=== PATIENT | female | born 1975 | race Caucasian/White ===

== ENCOUNTER 2022-03-13 08:55 | Outpatient (REF) | payer OTHER, SELFPAY ==
--- NOTE | ~2022-03-13 | FL_ITS ---
EXAMINATION: FL AIR-CONTRAST UPPER GI EXAMINATION CLINICAL INFORMATION: Epigastric pain. Status post previous gastric sleeve into thousand and 7 according to patient. All imaging has been performed at [facility]. COMPARISON: None at this time. Prior studies from [facility] will be obtained with addendum to be made following review of these studies. TECHNIQUE: Air-contrast upper GI examination. FINDINGS: Patient swallowed thin and thick barium and half-inch diameter barium tablet without difficulty. No nasopharyngeal reflux or tracheal aspiration was identified. No Zenker's diverticulum is seen. No cricopharyngeal hypertrophy. There is a small hiatal hernia present. There is spontaneous gastroesophageal reflux to the level of the thoracic inlet with tertiary contractions identified. No definite esophageal mucosal ulceration is appreciated. Patient status post previous gastric surgery. There is a small persistent linear region of contrast with question adjacent edematous change versus postsurgical change. This could represent a possible ulcer. This is about the lateral wall of the stomach. There is also what appears be some contrast external to the stomach below the left hemidiaphragm and it is difficult to tell whether this may be an acute or chronic finding. Prior studies will be obtained for comparison. No evidence of gastric outlet obstruction. Duodenal bulb and sweep appear unremarkable. FL/FL upper GI w Ba Swallow IMPRESSION: Small hiatal hernia with spontaneous gastroesophageal reflux and tertiary contractions. Postsurgical change of the stomach with question of ulceration versus postoperative change about the left lateral aspect. Contrast which appears be external to the stomach may be acute or chronic and studies from [facility] will be obtained for comparison.
== END 2022-03-13 08:56 | disposition home or self-care (01) ==
LOC: HO.XRAY 08:55
PROVIDERS: PCP Internal Medicine; Visit Provider Internal Medicine Gastroenterology
DX: R10.13 Epigastric pain (principal); Z98.84 Bariatric surgery status
CPT/HCPCS: 74240

== ENCOUNTER 2022-03-19 11:41 | Day surgery (SDC) | payer OTHER, SELFPAY ==
[2022-03-19 11:55] VITALS: BMI 35.4
--- NOTE | 2022-03-19 11:59 | P.HPSUR_ITS ---
Pre-Procedural Eval Section A Date of Service: 03/19/22 Section B Chief Complaint: Epigastric pain Details of Present Illness: several months hx of nausea with blood tinged emesis and epigastric pain as well as dark stools. She is taking iron supplements, [facility] 11 and iron sat 4 %. She also had abnormal imaging with possible ulcer in stomach Relevant Family History (Specify if Yes): No Relevant Social History: None Present Medications: see Short Stay Collaborative assessment Medical History: Significant History (GERD, COVID twice, iron def) History of Previous Operations: Relevant previous surgery/procedure and date(s) (sleeve gastrectomy, tubal ligation ) Allergies: Allergies Allergy/AdvReac Type Severity Reaction Status Date / Time Penicillin Allergy Unknown hives Uncoded 09/09/12 00:00 Percocet Allergy Unknown upset Uncoded 09/09/12 00:00 stomach, vomitting Tylenol with Codeine Allergy Unknown upset Uncoded 09/09/12 00:00 stomach, hives Ultram ER Allergy Unknown upset Uncoded 09/09/12 00:00 stomach, vomitting Review of Systems Sugical H&P ROS: Negative: Constitution, Cardiovascular, Respiratory, Neurological, Psychiatric, Hem-Onc, Allergic/Immunologic, Gastrointestinal, Genitourinary, Musculoskeletal, Integumentary, Endocrine and Eyes/Ears/Nose/Throat Exam Surgical H&P Exam: Normal: HEENT, Normal: Heart, Normal: Lungs, Normal: Extremities, Normal: Skin and Normal: Neurological and Significant Findings: Abdomen (tender epigastrium) Plan Diagnosis/Plan: Unchanged I have reviewed the history and physical and performed a pertinent physical examination on my patient. No changes have occurred unless specified. EGD for further assessment.
--- NOTE | 2022-03-19 12:02 | P.BOP_ITS ---
Brief Operative Note Date of Service: 03/19/22 Pre-op diagnosis: epigastric pain Post-op diagnosis: same Procedure: see op note Surgeon: Jordan Esteban MD Anesthesia: MAC Was an [employer] used for this Procedure?: No Estimated blood loss (mL): 0 Condition: stable Disposition: PACU
--- NOTE | 2022-03-19 12:02 | W.PM.OPN ---
Operative Note Operative Note Date of Service: 03/19/22 Narrative: Procedure Description: EGD Indication: epigastric pain Anesthesia: MAC FLEXIBLE TRANSORAL UPPER GASTROINTESTINAL ENDOSCOPY UPPER ENDOSCOPY Consent: Indications for the procedure and potential complications of bleeding, perforation, reaction to medications and missed diagnosis were discussed with the patient and informed consent was obtained. Instrument: Olympus GIF H 190 J mid size upper endoscope Monitoring: Vital signs and clinical assessment, continuous EKG monitoring, Pulse oximetry, Carbon Dioxide monitoring and blood pressure monitoring were done throughout the procedure. Procedure: The patient was placed in the left lateral decubitis position and pre-procedure medications were administered and a bite block was placed. The endoscope was inserted into the mouth and advanced under direct vision to the third part of duodenum. A careful inspection was made as the upper endoscope was withdrawn including a retroflexed examination of the proximal stomach; Findings and interventions are described below. Findings: Larynx:normal Esophagus: GE junction at 34 cm, diaphragm hiatus at 38 cm, consistent with 4 cm hiatal hernia, schatzki ring noted with inflammation and edema around it. this was dilated to 19 mm where a lot of resistance was felt but no tear noted. UES dilated to 18 mm, no tear noted. Bx taken from GEJ and random esophagus Stomach: Patchy gastric erythema with linear erosive streaks in the antrum noted. Biopsies were obtained. Grade 2 flap valve on retroflexed examination of the cardia. Post surgical changes noted Duodenum: Normal bulb and descending duodenum, bx taken Intervention: Biopsies as noted above, balloon dilation Impression/Findings: schatzki ring and esophagitis erosive gastritis post surgical changes hiatal hernia She likely has severe reflux from her prior surgery causing her pain and discomfort, nausea PLAN: high dose PPI for 3 months then titrate down Reflux precautions avoid nsaids if h pylori pos then treat if sx persist then further imaging, maybe Ct or GES
[2022-03-19 12:03] VITALS: BP 115/78; PULSE 78; RESP 16; TEMP 36.6; O2SAT 98
--- NOTE | 2022-03-19 12:07 | HO.ANESPROP2 ---
[facility] Active Problems Active Problems: All Active Problems (Updated 03/19/22 @ 12:03 by Nerissa Hart, RN) Epigastric abdominal pain (Acute) H/O bariatric surgery (Acute) Past Medical History Medical History (Updated 03/19/22 @ 12:03 by Nerissa Hart RN) Anemia Functional capacity: independent ambulation Patient : No Family History Family history of problems with anesthesia: No Surgical History Surgical History (Updated 03/19/22 @ 12:03 by Nerissa Hart RN) History of esophagogastroduodenoscopy History of gastric surgery Tubal ligation status History of Problems with Anesthesia: No Social History Social History Patient Tobacco Use Status: Never used Tobacco Use of substances other than those prescribed or required for medical reasons: No Are you DNR?: No Advance Directives: No Advance Directives Information Provided: Yes Meds Allergies Allergy/AdvReac Type Severity Reaction Status Date / Time Penicillin Allergy Unknown hives Uncoded 03/19/22 12:03 Percocet Allergy Unknown upset Uncoded 03/19/22 12:03 stomach, vomitting Tylenol with Codeine Allergy Unknown upset Uncoded 03/19/22 12:03 stomach, hives Ultram ER Allergy Unknown upset Uncoded 03/19/22 12:03 stomach, vomitting Exam Exam Date and Time: March 19, 2022 1207 Height,Weight and Vital Signs: Height 5 ft 3 in Weight 90.718 kg Assessment and Plan Assessment Anesthesia Assessment: Anesthesia Plan Discussed Final Anesthetic Review Family History of Problems with Anesthesia: No History of Problems with Anesthesia: No NPO: Yes ASA Class: II Final Preanesthetic Review: No Changes in Pt Med Stat, Meds/Allgs Chart Reviewed, Consent Obtained/Reviewed and Anes Risks/Benef Reviewed Patient Risk: Low Procedure Risk: Low Anesthetic Plan Anesthetic Plan: MAC: Disposition: Standard PACU
[2022-03-19 12:27] VITALS: BP 112/82; PULSE 66; RESP 16; TEMP 36.7; O2SAT 98
[2022-03-19 12:42] VITALS: BP 116/76; PULSE 102; RESP 16; TEMP 36.4; O2SAT 97
[2022-03-19 12:57] VITALS: BP 112/80; PULSE 88; RESP 16; O2SAT 98
--- NOTE | 2022-03-19 13:18 | PM.ANESPN ---
Subjective Subjective Date of Service: 03/19/22 Physical Exam Vital Signs: Vital Signs: Last Vital Signs Temp 97.5 F 03/19/22 12:42 Pulse 88 03/19/22 12:57 Resp 16 03/19/22 12:57 BP 112/80 03/19/22 12:57 Pulse Ox 98 03/19/22 12:57 BMI result Body Mass Index 35.4 Progress Note: A&P Time Spent With Patient Time: Total time spent is greater than 50% in coordination of care (as documented) at patient's floor/unit and/or counseling patient:
--- NOTE | 2022-03-19 13:19 | HO.POSTANES ---
Post Anesthesia Evaluation Post Anesthesia Evaluation Vital Signs: Vital Signs Temp Pulse Resp BP Pulse Ox 03/19/22 12:57 88 16 112/80 98 03/19/22 12:42 97.5 F 102 H 16 116/76 97 03/19/22 12:03 97.9 F 78 16 115/78 98 Anesthesia: Monitored Mental Status: Awake Pain Control: Satisfactory Nausea/Vomiting: None Hydration: Adequate Anesthesia-Related Issues: No Anes. Related Issues
[2022-03-19] MEDS: Ondansetron ODT 4 MG TAB.RAPDIS TRANSLINGU (13:35)
== END 2022-03-19 15:31 | disposition home or self-care (01) ==
PROVIDERS: PCP Internal Medicine; Visit Provider Internal Medicine Gastroenterology
PROC: 0DJ08ZZ Inspection of Upper Intestinal Tract, Via Natural or Artificial Opening Endoscopic (ICD-10-PCS; CPT 43235; principal; 2022-03-19 12:50)
DX: R10.13 Epigastric pain (principal); D64.9 Anemia, unspecified; K29.60 Other gastritis without bleeding; K20.80 Other esophagitis without bleeding; K44.9 Diaphragmatic hernia without obstruction or gangrene; Z98.84 Bariatric surgery status; Z98.51 Tubal ligation status; Z88.0 Allergy status to penicillin; Z88.8 Allergy status to other drugs, medicaments and biological substances
CPT/HCPCS: 43249; 43239; 88305; 88342; C1726

== ENCOUNTER 2022-04-01 12:24 | Outpatient (REF) | payer OTHER, SELFPAY | END 2022-04-01 12:25 | disposition home or self-care (01) | LOC: HO.MDS 12:24 | PROVIDERS: PCP Internal Medicine; Visit Provider Internal Medicine Gastroenterology | DX: D50.9 Iron deficiency anemia, unspecified (principal); Z86.16 Personal history of COVID-19 | CPT/HCPCS: 96365; J2916 ==

== ENCOUNTER 2022-04-11 13:58 | Outpatient (REF) | payer OTHER, SELFPAY | END 2022-04-11 13:59 | disposition home or self-care (01) | LOC: HO.MDS 13:58 | PROVIDERS: PCP Internal Medicine; Visit Provider Internal Medicine Gastroenterology | DX: D50.9 Iron deficiency anemia, unspecified (principal) | CPT/HCPCS: 96365; J2916 ==

== ENCOUNTER 2022-04-18 14:01 | Outpatient (REF) | payer OTHER, SELFPAY | END 2022-04-18 14:02 | disposition home or self-care (01) | LOC: HO.MDS 14:01 | PROVIDERS: PCP Internal Medicine; Visit Provider Internal Medicine Gastroenterology | DX: D50.9 Iron deficiency anemia, unspecified (principal) | CPT/HCPCS: 96365; J2916 ==

== ENCOUNTER → 2022-07-08 08:21 | Outpatient (REF) | payer OTHER, SELFPAY ==
--- NOTE | ~2022-07-08 | NM_ITS ---
EXAMINATION: RADIONUCLIDE SOLID FOOD GASTRIC EMPTYING 4-HOUR STUDY CLINICAL INFORMATION: Early satiety. COMPARISON: No previous gastric emptying study is available for comparison. TECHNIQUE: A standard meal consisting of 4 oz of Egg Beaters brand equivalent tagged with 760 microcuries Tc-99m Sulfur Colloid, 8 oz water and 2 slices of toast with jelly was administered orally to the patient. Images were obtained using a dual head gamma camera in the anterior and posterior projections over of the stomach immediately post ingestion and at hourly intervals up to 4 hours post ingestion. The anterior and posterior counts at each time interval were averaged using the geometric mean and expressed as percentage of the immediate post ingestion counts. FINDINGS: There is good visualization of activity in the stomach immediately post ingestion. As the study progresses, there is good clearance of activity from the stomach and visualization of progressively increasing small bowel activity. By the end of the study, there is almost no retention noted in the stomach. Retention in the stomach at each time interval was: 1 hour 64% (normal 37%-90%) 2 hours 17% (normal 30%-60%) 3 hours 5% 4 hours 2% (normal 0%-10%) NM/NM gastric emptying study IMPRESSION: Normal 4-hour solid food gastric emptying study.
== END ==
LOC: HO.NUCMED 08:21
PROVIDERS: PCP Internal Medicine; Visit Provider Internal Medicine Gastroenterology
DX: R68.81 Early satiety (principal)
CPT/HCPCS: 78264; A9541

== ENCOUNTER 2023-02-19 10:10 | Day surgery (SDC) | payer OTHER, SELFPAY ==
--- NOTE | 2023-02-18 12:48 | HO.ANESPROP2 ---
Documented by User: Tana Guzman NP 02/18/23 12:49 HPI - Anesthesia Eval Consult details Narrative: 47yo F for Upper Endoscopy with Balloon Dilitation PMFSH Active Problems Active Problems: All Active Problems (Updated 03/19/22 @ 12:03 by Nerissa Hart RN) Epigastric abdominal pain (Acute) H/O bariatric surgery (Acute) Past Medical History Medical History (Updated 03/19/22 @ 12:03 by Nerissa Hart, RN) Anemia Family History Family history of problems with anesthesia: No Surgical History Surgical History (Updated 03/19/22 @ 12:03 by Nerissa Hart RN) History of esophagogastroduodenoscopy History of gastric surgery Tubal ligation status History of Problems with Anesthesia: No Social History Social History Patient Tobacco Use Status: Never used Tobacco Advance Directives: No Advance Directives Information Provided: Yes Meds Allergies Allergy/AdvReac Type Severity Reaction Status Date / Time Penicillin Allergy Unknown hives Uncoded 03/19/22 12:03 Percocet Allergy Unknown upset Uncoded 03/19/22 12:03 stomach, vomitting Tylenol with Codeine Allergy Unknown upset Uncoded 03/19/22 12:03 stomach, hives Ultram ER Allergy Unknown upset Uncoded 03/19/22 12:03 stomach, vomitting Exam Exam Date and Time: February 18, 2023 124 Assessment and Plan Assessment Anesthesia Assessment: Chart Reviewed Final Anesthetic Review Family History of Problems with Anesthesia: No History of Problems with Anesthesia: No Documented by User: Macy Quintana MD 02/19/23 10:37 PMFSH Past Medical History Medical History (Updated 03/19/22 @ 12:03 by Nerissa Hart RN) Anemia Surgical History Surgical History (Updated 03/19/22 @ 12:03 by Nerissa Hart RN) History of esophagogastroduodenoscopy History of gastric surgery Tubal ligation status Social History Social History Patient Tobacco Use Status: Never used Tobacco Advance Directives: No Advance Directives Information Provided: Yes Meds Allergies Allergy/AdvReac Type Severity Reaction Status Date / Time Penicillin Allergy Unknown hives Uncoded 03/19/22 12:03 Percocet Allergy Unknown upset Uncoded 03/19/22 12:03 stomach, vomitting Tylenol with Codeine Allergy Unknown upset Uncoded 03/19/22 12:03 stomach, hives Ultram ER Allergy Unknown upset Uncoded 03/19/22 12:03 stomach, vomitting Exam Airway Mallampati Class: II TM Dist: >3cm Neck ROM: Full Heart: rrr Lungs: cta Assessment and Plan Assessment Anesthesia Assessment: Anesthesia Plan Discussed Final Anesthetic Review NPO: Yes ASA Class: II Final Preanesthetic Review: No Changes in Pt Med Stat, Meds/Allgs Chart Reviewed and Consent Obtained/Reviewed Patient Risk: Intermediate Procedure Risk: Intermediate Anesthetic Plan Anesthetic Plan: MAC: Disposition: Standard PACU
[2023-02-19 10:21] VITALS: BP 132/86; PULSE 72; RESP 16; TEMP 36.3; O2SAT 96; BMI 32.4
[2023-02-19 10:52] VITALS: BP 132/86; PULSE 74; RESP 16; TEMP 36.2; O2SAT 96; BMI 32.4
--- NOTE | 2023-02-19 10:58 | MHC.SHP ---
Pre-Procedural Eval Section A Date of Service: 02/19/23 Section B Chief Complaint: dysphagia Details of Present Illness: hx of sleeve surgery and hernia Relevant Family History (Specify if Yes): No Relevant Social History: None Present Medications: see Short Stay Collaborative assessment Medical History: Significant History (anemia, ) History of Previous Operations: Relevant previous surgery/procedure and date(s) (History of esophagogastroduodenoscopy History of gastric surgery Tubal ligation status) Allergies: Allergies Allergy/AdvReac Type Severity Reaction Status Date / Time Penicillin Allergy Unknown hives Uncoded 03/19/22 12:03 Percocet Allergy Unknown upset Uncoded 03/19/22 12:03 stomach, vomitting Tylenol with Codeine Allergy Unknown upset Uncoded 03/19/22 12:03 stomach, hives Ultram ER Allergy Unknown upset Uncoded 03/19/22 12:03 stomach, vomitting Review of Systems Sugical H&P ROS: Negative: Constitution, Cardiovascular, Respiratory, Neurological, Psychiatric, Hem-Onc, Allergic/Immunologic, Gastrointestinal, Genitourinary, Musculoskeletal, Integumentary, Endocrine and Eyes/Ears/Nose/Throat Exam Surgical H&P Exam: Normal: HEENT, Normal: Heart, Normal: Lungs, Normal: Extremities, Normal: Abdomen, Normal: Skin and Normal: Neurological Plan Diagnosis/Plan: Unchanged I have reviewed the history and physical and performed a pertinent physical examination on my patient. No changes have occurred unless specified. Time Spent With Patient Time: Total time managing care of this patient today ____ minutes.
--- NOTE | 2023-02-19 11:33 | W.PM.OPN ---
Operative Note Operative Note Date of Service: 02/19/23 Narrative: Procedure Description: EGD Indication: dysphagia Anesthesia: MAC FLEXIBLE TRANSORAL UPPER GASTROINTESTINAL ENDOSCOPY UPPER ENDOSCOPY Consent: Indications for the procedure and potential complications of bleeding, perforation, reaction to medications and missed diagnosis were discussed with the patient and informed consent was obtained. Instrument: Olympus GIF H 190 J mid size upper endoscope Monitoring: Vital signs and clinical assessment, continuous EKG monitoring, Pulse oximetry, Carbon Dioxide monitoring and blood pressure monitoring were done throughout the procedure. Procedure: The patient was placed in the left lateral decubitis position and pre-procedure medications were administered and a bite block was placed. The endoscope was inserted into the mouth and advanced under direct vision to the third part of duodenum. A careful inspection was made as the upper endoscope was withdrawn including a retroflexed examination of the proximal stomach; Findings and interventions are described below. Findings: Larynx:normal Esophagus: GE junction at 36 cm, diaphragm hiatus at 40 cm, compatible wth 4 cm sliding hiatal hernia. There was an obstructive schatzki ring with erosive esophagitis, erythema, bogginess at GEJ. Dilated with 18 mm ballon with tear noted and heme. Bx taken from GEJ and distal esophagus. Stomach: Normal mucosa, post surgical changes of sleeve noted. Grade 2 flap valve on retroflexed examination of the cardia. Duodenum: Normal bulb and descending duodenum, Intervention: Biopsies as noted above, balloon dilation Impression/Findings: schatzki ring erosive esophagitis PLAN: check compliance with PPI, if taking then change to anther agent GERD precautions.
[2023-02-19 11:41] VITALS: BP 130/83; PULSE 83; RESP 16; TEMP 36.6; O2SAT 97
[2023-02-19 11:56] VITALS: BP 137/73; PULSE 66; RESP 16; TEMP 36.4; O2SAT 100
== END 2023-02-19 12:35 | disposition home or self-care (01) ==
PROVIDERS: PCP Internal Medicine; Visit Provider Internal Medicine Gastroenterology
PROC: (CPT 43249; principal; 2023-02-19 11:10)
DX: R13.10 Dysphagia, unspecified (principal); K22.2 Esophageal obstruction; K20.80 Other esophagitis without bleeding; Z98.84 Bariatric surgery status; Z88.5 Allergy status to narcotic agent
CPT/HCPCS: 43249; 43239; 88305; C1726; J3010